=== PATIENT | female | born 1955 | race Caucasian/White ===

== ENCOUNTER 2017-07-13 17:14 | Emergency (ER) | payer BC ==
[~2017-07-13] VITALS: Ht 160 cm; Wt 57.7 kg
[2017-07-13 17:27] VITALS: BP 135/96
== END 2017-07-13 18:28 | disposition home or self-care (01) ==
LOC: ED 18:20
DX: S83.91XA Sprain of unspecified site of right knee, initial encounter (principal); W19.XXXA Unspecified fall, initial encounter; Y93.89 Activity, other specified; Y99.8 Other external cause status; Y92.099 Unspecified place in other non-institutional residence as the place of occurrence of the external cause
CPT/HCPCS: 99284